=== PATIENT | male | born 1945 | race Caucasian/White ===

== ENCOUNTER 2017-12-16 05:39 | Inpatient (IN) | payer MEDICARE, OTHER ==
[~2017-12-16] VITALS: Ht 167.6 cm; Wt 85.6 kg
[2017-12-16] VITALS (18 sets, daily range): BP systolic 90–142; BP diastolic 53–87
[~2017-12-16 05:39] MED LIST: DILT120C10 PO; LEVO125T8 PO; MULT-1085 PO; VALS1TAB75 PO; acetaminophen 325mg tablet PO ONE; cefazolin/dext.iso 2gm/50ml 50 ML IV ONE; famotidine 20mg tablet PO ONE; gabapentin 300mg capsule PO ONE; oxyCODONE SR 10mg (sust. release) tab PO ONE; ringers solution, lacted 1,000 ML IV SCH; tranexamic acid inj. 1,000 MG in normal saline 100ml IV soln 90 ML IV ONE
[2017-12-16] MEDS ORDERED: LIDOcaine 1% (10mg/ml) 2ml vial ONE (06:03)
[2017-12-16] MEDS ORDERED: ROPIVAcaine 0.5% (5mg/ml) 30ml vial ONE ×2 (06:54→07:12)
[2017-12-16] MEDS ORDERED: bacitracin inj 150,000 UNIT in sodium chloride irrig. sol 3,000 ML IR ONE (07:00)
[2017-12-16] MEDS ORDERED: cloNIDine hcl/PF 100mcg/ml inj ONE (07:12)
[2017-12-16] MEDS ORDERED: tetracaine 1% (10mg/ml) pres. free inj. ONE (07:12)
[2017-12-16] MEDS ORDERED: MIDAZolam 5mg/5ml vial ONE ×2 (07:14)
[2017-12-16] MEDS ORDERED: fentaNYL/PF 50MCG/1 ML 2ML syringe ONE (07:14)
[2017-12-16] MEDS ORDERED: MORPHINE SULFATE/PF 0.5 MG/ML 10ML AMPUL ONE (07:14)
[2017-12-16] MEDS ORDERED: propofol inj 20 ML IV ONE ×2 (07:16)
[2017-12-16] MEDS ORDERED: dexamethasone sod phosphate 4mg/ml inj. ONE (07:16)
[2017-12-16] MEDS ORDERED: LIDOcaine 2% (20mg/ml) 5ml vial ONE (07:16)
[2017-12-16] MEDS ORDERED: ringers solution, lacted 1,000 ML IV SCH (08:28)
[2017-12-16] MEDS ORDERED: morphine 4 MG/ML inj SYRINge IV PRN ×2 (08:30)
[2017-12-16] MEDS ORDERED: enalaprilat dihydrate 2.5mg/2ml vial IV PRN (08:30)
[2017-12-16] MEDS ORDERED: hydrALAZINE 20mg/ml inj. IV PRN (08:30)
[2017-12-16] MEDS ORDERED: ondansetron/PF 4mg/2ml inj IV PRN ×3 (08:30→10:20)
[2017-12-16] MEDS ORDERED: fentaNYL/PF 50MCG/1 ML 2ML syringe IV PRN ×2 (08:30)
[2017-12-16] MEDS ORDERED: diphenhydrAMINE 50 mg/ml inj IV PRN (08:30)
[2017-12-16] MEDS ORDERED: HYDROmorphone inj. 0.5 MG/0.5 ML DISP.SYRIN IV PRN (10:20)
[2017-12-16] MEDS ORDERED: acetaminophen 325mg tablet PO PRN (10:20)
[2017-12-16] MEDS ORDERED: bisacodyl 10mg suppository rectal RC PRN (10:20)
[2017-12-16] MEDS ORDERED: diphenhydrAMINE 25mg capsule PO PRN ×2 (10:20)
[2017-12-16] MEDS ORDERED: magnesium hydroxide 30ml (MOM) UD suspension PO PRN (10:20)
[2017-12-16] MEDS ORDERED: morphine 2 MG/ML inj. syringe IV PRN ×2 (10:32)
[2017-12-16] MEDS: gabapentin 300mg capsule PO SCH ×2 (15:52→20:32)
[2017-12-16] MEDS: acetaminophen 325mg tablet PO SCH ×2 (15:53→20:33)
[2017-12-16] MEDS: cefazolin 1gm/NS 100mL 100 ML IV SCH ×2 (15:53→23:23)
[2017-12-16] MEDS: potassium cl 20mEq in 1/2 NS 1,000 ML IV SCH ×2 (15:53→18:17)
[2017-12-16] MEDS: sennosides 8.6mg tablet PO SCH (20:32)
[2017-12-16] MEDS: celeCOXIB 100mg capsule PO SCH (20:33)
[2017-12-16] MEDS: ascorbic acid 500mg tablet PO SCH (20:34)
[2017-12-16] MEDS: oxyCODONE/APAP 10/325mg tablet PO PRN (23:26)
[2017-12-17 02:00] VITALS: BP 118/68
[2017-12-17] MEDS: acetaminophen 325mg tablet PO SCH ×4 (02:00→14:00)
[2017-12-17] MEDS: potassium cl 20mEq in 1/2 NS 1,000 ML IV SCH ×3 (02:17→20:45)
[2017-12-17 06:00] VITALS: BP 130/74
[2017-12-17 06:16] LABS: INR 1.1 INR; PROTHROMBIN TIME 11.3 SECONDS (9.0-12.0)
[2017-12-17 06:26] LABS: ANION GAP 11 (8-16); CHLORIDE 107 MMOL/L (99-107); POTASSIUM 4.1 MMOL/L (3.5-5.1); SODIUM 139 MMOL/L (135-145); TOTAL CARBON DIOXIDE 21.4 MMOL/L (24-32)
[2017-12-17 06:28] LABS: BASOPHILS % (AUTO) 0.3 % (0-1); EOSINOPHILS # (AUTO) 0.1 X10'3 (0-0.9); HEMATOCRIT 35.7 % (42.0-52.0); HEMOGLOBIN 12.8 g/dl (14.0-17.9); LYMPHOCYTES # (AUTO) 1.2 X10'3 (1.1-4.8); LYMPHOCYTES % (AUTO) 14.6 % (21-51); MEAN CORPUSCULAR HEMOGLOBIN 32.9 PG (27.0-31.0); MEAN CORPUSCULAR HGB CONC 35.8 % (33.0-36.5); MEAN CORPUSCULAR VOLUME 91.7 FL (78-98); MEAN PLATELET VOLUME 8.4 FL (7.4-10.4); MONOCYTES # (AUTO) 0.8 X10'3 (0-0.9); MONOCYTES % (AUTO) 9.9 % (2-12); NEUTROPHILS # (AUTO) 5.9 X10'3 (1.8-7.7); NEUTROPHILS % (AUTO) 74.2 % (42-75); PLATELET COUNT 159 X10'3 (140-440); RED CELL DISTRIBUTION WIDTH 13.1 % (11.5-14.5); WHITE BLOOD COUNT 7.9 X10'3 (4.5-11.0)
[2017-12-17] MEDS: HYDROchlorothiazide 12.5mg capsule PO SCH (09:31)
[2017-12-17] MEDS: diltiazem CD 120mg capsule (once-daily) PO SCH (09:31)
[2017-12-17] MEDS: celeCOXIB 100mg capsule PO SCH ×2 (09:31→20:36)
[2017-12-17] MEDS: gabapentin 300mg capsule PO SCH ×3 (09:32→20:53)
[2017-12-17] MEDS: multivitamins, therapeutics tablet PO SCH (09:33)
[2017-12-17] MEDS: levoTHYROXINE 125mcg tablet PO SCH (09:33)
[2017-12-17] MEDS: ascorbic acid 500mg tablet PO SCH ×2 (09:33→20:36)
[2017-12-17] MEDS: oxyCODONE/APAP 10/325mg tablet PO PRN ×3 (09:34→20:37)
[2017-12-17 10:00] VITALS: BP 112/68
[2017-12-17] MEDS ORDERED: warfarin 10mg tablet PO ONE (10:00)
[2017-12-17 14:00] VITALS: BP 127/76
[2017-12-17 18:00] VITALS: BP 92/57
[2017-12-17] MEDS: sennosides 8.6mg tablet PO SCH (20:36)
[2017-12-17 22:00] VITALS: BP 129/73
[2017-12-18] MEDS: oxyCODONE/APAP 10/325mg tablet PO PRN ×2 (05:18→10:59)
[2017-12-18 06:53] LABS: BASOPHILS % (AUTO) 0.3 % (0-1); EOSINOPHILS # (AUTO) 0.2 X10'3 (0-0.9); EOSINOPHILS % (AUTO) 2.8 % (0-6); HEMATOCRIT 38.7 % (42.0-52.0); HEMOGLOBIN 13.6 g/dl (14.0-17.9); LYMPHOCYTES # (AUTO) 1.6 X10'3 (1.1-4.8); LYMPHOCYTES % (AUTO) 22.1 % (21-51); MEAN CORPUSCULAR HEMOGLOBIN 32.8 PG (27.0-31.0); MEAN CORPUSCULAR HGB CONC 35.1 % (33.0-36.5); MEAN CORPUSCULAR VOLUME 93.3 FL (78-98); MEAN PLATELET VOLUME 8.6 FL (7.4-10.4); MONOCYTES # (AUTO) 0.8 X10'3 (0-0.9); MONOCYTES % (AUTO) 11.4 % (2-12); NEUTROPHILS # (AUTO) 4.7 X10'3 (1.8-7.7); NEUTROPHILS % (AUTO) 63.4 % (42-75); PLATELET COUNT 172 X10'3 (140-440); RED BLOOD COUNT 4.14 X10'6 (4.70-6.10); RED CELL DISTRIBUTION WIDTH 13.6 % (11.5-14.5); WHITE BLOOD COUNT 7.4 X10'3 (4.5-11.0)
[2017-12-18 06:59] LABS: INR 1.2 INR
[2017-12-18] MEDS: potassium cl 20mEq in 1/2 NS 1,000 ML IV SCH (07:00)
[2017-12-18 07:17] VITALS: BP 131/84
[2017-12-18] MEDS: gabapentin 300mg capsule PO SCH (08:16)
[2017-12-18] MEDS: celeCOXIB 100mg capsule PO SCH (08:19)
[2017-12-18] MEDS: levoTHYROXINE 125mcg tablet PO SCH (08:19)
[2017-12-18] MEDS: HYDROchlorothiazide 12.5mg capsule PO SCH (08:20)
[2017-12-18] MEDS: ascorbic acid 500mg tablet PO SCH (08:20)
[2017-12-18] MEDS: multivitamins, therapeutics tablet PO SCH (08:20)
[2017-12-18] MEDS: diltiazem CD 120mg capsule (once-daily) PO SCH (08:21)
[2017-12-18] MEDS ORDERED: ASPI-41 PO (08:41)
[2017-12-18] MEDS ORDERED: acetaminophen 325mg tablet PO PRN (10:20)
== END 2017-12-18 11:05 | disposition home health service (06) | DRG 470 ==
LOC: PAS IN 05:39 → EDSTATUS 07:30 → ORTHO 4S 11:32
PROVIDERS: ADMIT Specialist; ATTEND Specialist
PROC: 0SRD0J9 Replacement of Left Knee Joint with Synthetic Substitute, Cemented, Open Approach (ICD-10-PCS; principal; 2017-12-16 07:22)
DX: M17.12 Unilateral primary osteoarthritis, left knee (principal); D62 Acute posthemorrhagic anemia; E03.9 Hypothyroidism, unspecified; I10 Essential (primary) hypertension; M81.0 Age-related osteoporosis without current pathological fracture; Z96.651 Presence of right artificial knee joint; Z79.899 Other long term (current) drug therapy; Z85.820 Personal history of malignant melanoma of skin
CPT/HCPCS: 36415; 73560; 80051; 85025; 85610; 97110; 97116; 97162; 97530; A6449; A6455; A7000; C1713; C1758; C1776; J0690; J0735; J1100; J2001; J2250; J2274; J2704; J2795; J3010; J3490; J7030; J7120; Q0163